=== PATIENT | male | born 1960 | race Hispanic/Latino ===

== ENCOUNTER 2016-12-03 03:44 | Emergency (ER) | payer OTHER ==
[2016-12-03] MEDS ORDERED: Ketorolac Tromethamine 30 MG/ML VIAL ONE (04:06)
[2016-12-03] MEDS ORDERED: Sodium Chloride 0.9% 1,000 ML ONE (04:06)
[2016-12-03] MEDS ORDERED: Ondansetron HCl/PF 4 MG/2 ML Vial ONE (04:06)
[2016-12-03 04:30] LABS: #Basophils 0.1 thou/uL (0.0-0.2); #Eosinphils 0.1 thou/uL (0.0-0.7); #Lymphocytes 1.9 thou/uL (1.20-3.40); #Monocytes 0.4 thou/uL (0.11-0.59); #Neutrophils 3.3 thou/uL (1.40-6.50); %Basophils 1.5 % (0.0-1.0); %Eosinophils 2.2 % (0.0-10.0); %Lymphocytes 32.4 % (21.0-51.0); %Monocytes 6.5 % (0.0-10.0); Hematocrit 44.8 % (42.0-52.0); Mean Platelet Volume 6.2 fL (7.4-10.4); Red Blood Cell (RBC) Count 5.21 mill/uL (4.70-6.10); White Blood Cell (WBC) Count 5.7 thou/uL (4.8-10.8)
[2016-12-03 04:43] LABS: ALT (SGPT) 29 U/L (0-55); AST (SGOT) 20 U/L (5-34); Alkaline Phosphatase 104 U/L (40-150); Anion Gap 14 mmol/L (10-20); BUN (Urea Nitrogen) 15 mg/dL (8.4-25.7); Bilirubin, Total 0.9 mg/dL (0.2-1.2); Calc. Creatinine Clearance 0 mL/min (70-130); Carbon Dioxide 22 mmol/L (22-29); Chloride 106 mmol/L (98-107); Estimated GFR-MDRD 86; Globulin 2.7 g/dL (2.4-3.5); Protein, Total 6.8 g/dL (6.0-8.3)
[2016-12-03 05:12] LABS: Bilirubin Negative (Negative); Blood, Urine Negative (Negative); Glucose, Urine (Dipstick) 500 mg/dL (Negative); Ketone, Urine Negative (Negative); Nitrite Negative (Negative); Protein, Urine (Dipstick) Trace mg/dL (Neg-Trace); Urobilinogen 0.2 mg/dL (0.2-1.0)
--- NOTE | 2016-12-03 08:04 | CT ---
CT ABDOMEN AND PELVIS WITH IV AND ORAL CONTRAST: History: Left abdomen pain, dysuria. Comparison: 06-02-15 FINDINGS: Mild atelectasis is present at each lung base. Reflux of oral contrast is apparent into the distal esophagus. Cysts arise from the cortex of each kidney. There is no evidence of bowel obstruction. Each renal collecting system and ureter are decompressed. A lobulated calcification within the infe rior pole of the left kidney measures up to 0.9 cm greatest diameter. Additional calcifications are present within nondilated calices of each kidney, measuring up to 0.8 cm a the inferior pole of the right kidney. No stones are evident within the ureters. Phleboliths are noted within the retroper itoneum. Urinary bladder is incompletely distended. Degenerative change involve the lumbar spine. There are nonspecific lymph nodes scattered througho ut the retroperitoneum. IMPRESSION: 1. Nonobstructing bilateral renal calculi measuring up to 9 mm on the left and 8 mm on the right. 2. Gastroesophageal reflux. POS: LOCO
[2016-12-03] MEDS ORDERED: HYDROcodone/Acetaminophen 10/325 mg Tablet ONE (08:29)
[2016-12-03] MEDS ORDERED: Iopamidol 370 76% 100 ML VIAL ONE (09:00)
--- NOTE | 2016-12-03 09:10 | ERRECORD ---
[facility] EMERGENCY RECORD HPI FLANK PAIN (05:20 JLOY) CHIEF COMPLAINT: Patient presents for evaluation of flank pain, on the left, Patient presents for evaluation of Pt with left low back pain x 2 days gradually worsening. Also with LLQ pain. Difficulty with urination. HISTORIAN: History provided by patient. LOCATION MALE: Symptoms are localized, most severe in the left lower quadrant. QUALITY: Pain is dull in nature. TIME COURSE: Gradual onset of symptoms, Symptoms are worsening, are constant. ASSOCIATED WITH MALE: No associated chills, No associated diarrhea, No associated fever, No associated hematuria, Associated with nausea, No associated inability to tolerate oral intake, No associated vomiting. EXACERBATED BY: Patient's condition exacerbated by deep breath, Patient's condition exacerbated by movement. RELIEVED BY: Patient's condition relieved by nothing. ROS CONSTITUTIONAL: Historian denies chills, denies fever. (05:30 JLOY) ENT: Historian denies rhinorrhea, denies sore throat. (05:30 JLOY) CARDIOVASCULAR: Historian denies chest pain. (05:30 JLOY) RESPIRATORY: Historian denies cough, denies shortness of breath. (05:30 JLOY) GI: Historian reports abdominal pain, denies constipation, denies diarrhea, denies hematemesis, denies hematochezia, denies melena, reports nausea, denies vomiting. (05:30 JLOY) GENITOURINARY MALE: Historian denies dysuria, denies hematuria, reports hesitancy. (05:30 JLOY) MUSCULOSKELETAL: Historian reports back pain. (05:30 JLOY) SKIN: Historian denies rash, denies skin changes. (05:30 JLOY) NEUROLOGIC: Historian denies dizziness, denies headache. (05:30 JLOY) PSYCHIATRIC: Negative psychiatric review of systems, Historian denies alcohol abuse, denies drug abuse, denies mood changes. (FriDec 04, 2016 00:35 AGRE) PAST MEDICAL HISTORY MEDICAL HISTORY: Flu vaccine not up to date, Tetanus immunization up to date, Pneumococcal vaccine not up to date, Past medical history includes history of hyperlipidemia, high cholesterol, Past medical history includes history of diabetes, Type II, Past medical history includes gastrointestinal disease, hernia, Past medical history includes genitourinary history, benign prostatic hypertrophy, Past medical history includes history of hypertension, which has been &a-1R&a+25V*p+0X*f4823G*c202B*c15G*c2P*p-0X&a-25V&a+1R Name: Agustín Grande : 1960 M56 MedRec: [id number] AcctNum: [id number] Prepared: FriDec 04, 2016 00:49 by Interface Page 1 of 5 pMD [facility] EMERGENCY RECORD treated, Past medical history includes pulmonary disease, sleep apnea. (04:05 [facility]) MALE SURGICAL HISTORY: HEART STENT (1.5 YEARS AGO), uvula removed, sinus sx deviated septum correction, Surgical history of hernia repair, Surgical history of tonsillectomy. (REVIEWED 12/03/16). (04:05 [facility]) PSYCHIATRIC HISTORY: No previous psychiatric history. (04:05 [facility]) SOCIAL HISTORY: Lives at home, with family, Patient drinks socially, Patient denies drug use, Patient currently uses tobacco, Smokes cigars, Occasional or some day smoker, rarely. (04:05 [facility]) NOTES: Nursing records reviewed, Agree with nursing records. (05:32 [facility]) KNOWN ALLERGIES ciprofloxacin (bulk) clindamycin (Unconfirmed) CURRENT MEDICATIONS atorvastatin: TABLET : Strength - 20 mg : ORAL Patient Dose: UNK Oral once a day. (03:54 [facility]) meTOPROLOL succinate: TABLET, EXTENDED RELEASE 24 HR : Strength - 25 mg : ORAL Patient Dose: UNK Oral 2 times a day. (03:55 [facility]) metFORMIN: TABLET : Strength - 1,000 mg : ORAL Patient Dose: 1000 mg Oral 2 times a day. (03:55 [facility]) lisinopril: TABLET : Strength - 2.5 mg : ORAL Patient Dose: UNK Oral once a day. (03:55 [facility]) aspirin: TABLET : Strength - 81 mg : ORAL Patient Dose: 81 mg Oral once a day. (03:56 [facility]) terazosin: CAPSULE : Strength - 1 mg : ORAL Patient Dose: UNK Oral once a day (at bedtime). (03:57 [facility]) VITAL SIGNS VITAL SIGNS: BP: 150/89, Pulse: 76, Resp: 18, Temp: 98.3 (Oral), Pain: 10 (Sharp), O2 sat: 97 on Room Air, Time: 12/03/2016 03:57. (03:57 [facility]) BP: 134/86, Pulse: 75, Resp: 18, Pain: 10, O2 sat: 94 on Room Air, Time: 12/03/2016 04:28. (04:28 [facility]) BP: 140/81, Pulse: 72, Resp: 18, Pain: 5, O2 sat: 98 on Room Air, Time: 12/03/2016 06:30. (06:30 [facility]) BP: 122/69, Pulse: 74, Resp: 18, Pain: 5, O2 sat: 96 on Room Air, Time: &a-1R&a+25V*p+0X*h7350C*c202B*c15G*c2P*p-0X&a-25V&a+1R Name: Agustín Grande : 1960 M56 MedRec: [id number] AcctNum: [id number] Prepared: FriDec 04, 2016 00:49 by Interface Page 2 of 5 D [facility] EMERGENCY RECORD 12/03/2016 05:30. (05:30 [facility]) BP: 137/82, Pulse: 75, Resp: 16, O2 sat: 97 on Room Air, Time: 12/03/2016 07:00. (07:00 [facility]) BP: 131/82, Pulse: 75, Resp: 16, O2 sat: 98 on RA, Time: 12/03/2016 08:16. (08:16 [facility]) BP: 138/84, Pulse: 70, Resp: 16, O2 sat: 98 on Room Air, Time: 12/03/2016 08:30. (08:30 [facility]) Pain: 3, Time: 12/03/2016 08:32. (08:32 [facility]) PHYSICAL EXAM (05:31 [facility]) CONSTITUTIONAL: Vital signs reviewed, Patient appears non toxic, Patient appears in pain, in severe pain distress, Patient alert and oriented to person, place and time. EYES: Eye exam included findings of eyelids normal to inspection, Pupils equally round and reactive to light, Conjunctiva normal. ENT: Pharynx exam normal, Uvula exam normal, Tonsil exam normal, Mouth exam normal, mucous membranes moist. RESPIRATORY CHEST: Respiratory exam included findings of no respiratory distress, Breath sounds clear, No wheezing, No rales, No rhonchi, Chest exam included findings of chest movement symmetrical. CARDIOVASCULAR: Cardiovascular exam included findings of heart rate regular rate and rhythm, Heart sounds normal. ABDOMEN MALE: Abdominal exam included findings of abdomen tender, to the left upper quadrant, to the left lower quadrant, periumbilical, to the suprapubic region, moderate intensity, Bowel sounds normal, Liver normal, Spleen normal, no peritoneal signs, no rigidity, no guarding, no rebound. BACK: Back exam included findings of normal inspection, range of motion normal, Tenderness, paraspinal to the left mid back, paraspinal to the left lower back, Costovertebral angle tenderness, on the left. UPPER EXTREMITY: Upper extremity exam included findings of inspection normal, Radial pulse normal, no cyanosis, no clubbing, no edema. LOWER EXTREMITY: Lower extremity exam included findings of inspection normal, no edema, no calf tenderness. NEURO: Lennon coma scale 15, Neuro exam findings include patient oriented to person, place and time, Speech normal. SKIN: Skin exam included findings of skin warm, dry, and normal in color, no rash. PSYCHIATRIC: Normal affect. RADIOLOGYINTERPRETATION (FriDec 04, 2016 00:38 AGRE) WATER QUALITY ASSISTANT: Preliminary review of CT scans by, Radiologist, IMPRESSION: 1. Nonobstructing bilateral renal calculi measuring up to 9 mm on the left and 8 mm on the right. 2. Gastroesophageal reflux. &a-1R&a+25V*p+0X*b5473M*c202B*c15G*c2P*p-0X&a-25V&a+1R Name: Agustín Grande : 1960 M56 MedRec: [id number] AcctNum: [id number] Prepared: FriDec 04, 2016 00:49 by Interface Page 3 of 5 pMD [facility] EMERGENCY RECORD MEDICATION ADMINISTRATION SUMMARY Drug Name: HYDROcodone-acetaminophen, Dose Ordered: 10/325 tab(s), Route: Oral, Status: Given, Time: 08:32 12/03/2016, Drug Name: morphine injection, Dose Ordered: 4 mg, Route: IV Push, Status: Given, Time: 04:48 12/03/2016, Drug Name: ondansetron HCl intravenous, Dose Ordered: 4 mg, Route: IV Push, Status: Given, Time: 04:24 12/03/2016, Drug Name: ketorolac injection, Dose Ordered: 30 mg, Route: IV Push, Status: Given, Time: 04:22 12/03/2016, Drug Name: *sodium chloride 0.9 % intravenous, Dose Ordered: 1 L, Route: IV Fluid Infusion, Status: Given, Time: 04:20 12/03/2016, *Additional information available in notes, Detailed record available in Medication Service section. DOCTOR NOTES (FriDec 04, 2016 00:38 AGRE) RE-EVALUATION: Routine re-evaluation, after administration of analgesics, The patient's condition has improved. TEXT: PATIENT SIGNED OUT TO ME FROM DR CASE. PATIENT GIVES HX OF INJURYING HIS BACK WITH PAIN FOR 3 - 4 DAYS AND WORST THIS MORNING. HAVING TROUBLE GETTING OUT OF BED OR SITTING SELF UP THIS MORNING. ON EXAM THERE IS MARKED TENDERNESS OVER THE LEFT LOWER BACK MUSCULATURE. NO TENDERNESS OVER THE SPINE. NO SWELLING OR ERYTHEMA. MILD TENDERNESS LEFT FLANK, NO GUARDING OR REBOUND. DISCUSSED WITH PATIENT FINDINGS ON EXAM, RESULTS OF HIS ED WORK UP, SUSPECT ALL HIS SYMTPOMS ARE FROM HIS BACK INJURY HOWEVER CANNOT RULE OUT HIM HAVING PASSED A KIDNEY STONE CAUSING THE ACUTE EPISODE OF PAIN THIS MORINING. ADVISED HIM ON MANAGMENT OF HIS SYMPTOMS, LIMITATION OF ACTIVITY, PAIN CONTROL, NEED FOR FOLLOW UP. HE EXPRESSED UNDERSTANDING AND AGREEMENT WITH THIS PLAN. PATIENT STATUS: Patient has improved since arrival to emergency department. PATIENT PLAN: The patient will be discharged. DATA REVIEWED: Lab data reviewed, Xray data reviewed. PROBLEM LIST No recorded problems DIAGNOSIS (08:15 AGRE) FINAL: PRIMARY: Low back pain, ADDITIONAL: Abdominal Pain. PRESCRIPTION (08:21 AGRE) Robaxin oral: TABLET : 500 mg : ORAL : Quantity: 2 Unit: tab(s) Route: ORAL Schedule: every 6 hours PRN Dispense: 40 May substitute. Refills: No Refills . NOTES: PRN MUSCLE SPASMS No Refills. acetaminophen-codeine: TABLET : 300 mg-60 mg : ORAL : Quantity: 1 Unit: tab(s) Route: ORAL Schedule: every 6 hours PRN &a-1R&a+25V*p+0X*d0751R*c202B*c15G*c2P*p-0X&a-25V&a+1R Name: Agustín Grande : 1960 M56 MedRec: [id number] AcctNum: [id number] Prepared: FriDec 04, 2016 00:49 by Interface Page 4 of 5 pMD [facility] EMERGENCY RECORD Dispense: 20 Unit: tab(s) May substitute. Refills: No Refills . NOTES: prn severe pain No Refills. DISPOSITION PATIENT: Disposition Type: Discharge, Disposition: *Discharge Home, Condition: Improved. (08:15 AGRE) Patient left the department. (08:55 [facility]) Holder: BARRINGTON=MD Brayden, Kieran PAGE=MD Lencho, Bhavesh HERNANDEZ=YO Simental, Niharika [facility]=YO Gomez, Sarah &a-1R&a+25V*p+0X*f4510G*c202B*c15G*c2P*p-0X&a-25V&a+1R Name: Agustín Grande : 1960 M56 MedRec: [id number] AcctNum: [id number] Prepared: FriDec 04, 2016 00:49 by Interface Page 5 of 5 pMD [facility]TDD
--- NOTE | 2016-12-03 09:13 | PICIS ---
[facility] EMERGENCY RECORD TRIAGE (03:52 [facility]) TRIAGE NOTES: SHARP LEFT FLANK PAIN SINCE FRIDAY MORNING. GRADUALLY GOTTEN WORSE. DYSURIA. HX: KIDNEY STONES. (03:52 [facility]) PATIENT: NAME: Agustín Grande, AGE: 56, GENDER: male, : Fri1960, TIME OF GREET: FriDec 03, 2016 03:44, PREFERRED LANGUAGE: Occitan, ETHNICITY: or , ECODE BILLING MAP: [facility], SSN: [id number], Zip Code: [address], KG WEIGHT: 81.65 (est.), PHONE: , , , PERSON ID: [id number], PCP: DIANNE TORRES. (03:52 [facility]) COMPLAINT: LOWER BACK PAIN. (03:52 [facility]) ADMISSION: URGENCY: 3 Urgent, ADMISSION SOURCE: Home, TRANSPORT: CAR, BED: ER -03. (03:52 [facility]) ASSESSMENT: Symptoms began 12/01/2016. (04:05 [facility]) PAIN: Patient complains of pain described as, sharp, on a scale 0-10 patient rates pain as 10, Location LEFT FLANK, Onset was 12/01/2016. (04:05 [facility]) IMMUNIZATIONS: Flu vaccine not up to date, Tetanus immunization up to date, Pneumococcal vaccine not up to date. (04:05 [facility]) SIRS SCORING: Heart Rate 55-109 (0), Temp range 96.8-101.1 (0), respiratory rate 12-24 (0), Mental Status altered: no (0). (04:05 [facility]) TRIAGE SCREENING: Patient denies suicidal ideation, Patient denies presence of domestic violence. (04:05 [facility]) TREATMENTS IN PROGRESS: Treatments given Prehospital: 2 IBUPROFEN @ 0200. (04:05 [facility]) PROVIDERS: TRIAGE NURSE: Niharika Simental RN. (03:52 [facility]) PREVIOUS VISIT ALLERGIES: ciprofloxacin (bulk). (03:52 [facility]) ciprofloxacin (bulk). (04:05 [facility]) KNOWN ALLERGIES ciprofloxacin (bulk) clindamycin (Unconfirmed) CURRENT MEDICATIONS atorvastatin: TABLET : Strength - 20 mg : ORAL Patient Dose: UNK Oral once a day. (03:54 [facility]) meTOPROLOL succinate: TABLET, EXTENDED RELEASE 24 HR : Strength - 25 mg : ORAL Patient Dose: UNK Oral 2 times a day. (03:55 [facility]) metFORMIN: TABLET : Strength - 1,000 mg : ORAL Patient Dose: 1000 mg Oral 2 times a day. (03:55 [facility]) lisinopril: TABLET : Strength - 2.5 mg : ORAL Patient Dose: UNK Oral once a day. (03:55 [facility]) aspirin: &a-1R&a+25V*p+0X*n2037Z*c202B*c15G*c2P*p-0X&a-25V&a+1R Name: Agustín Grande : 1960 M56 MedRec: [id number] AcctNum: [id number] Prepared: FriDec 04, 2016 00:55 by Interface Page 1 of 12 pMD [facility] EMERGENCY RECORD TABLET : Strength - 81 mg : ORAL Patient Dose: 81 mg Oral once a day. (03:56 [facility]) terazosin: CAPSULE : Strength - 1 mg : ORAL Patient Dose: UNK Oral once a day (at bedtime). (03:57 [facility]) VITAL SIGNS VITAL SIGNS: BP: 150/89, Pulse: 76, Resp: 18, Temp: 98.3 (Oral), Pain: 10 (Sharp), O2 sat: 97 on Room Air, Time: 12/03/2016 03:57. (03:57 [facility]) BP: 134/86, Pulse: 75, Resp: 18, Pain: 10, O2 sat: 94 on Room Air, Time: 12/03/2016 04:28. (04:28 [facility]) BP: 140/81, Pulse: 72, Resp: 18, Pain: 5, O2 sat: 98 on Room Air, Time: 12/03/2016 06:30. (06:30 [facility]) BP: 122/69, Pulse: 74, Resp: 18, Pain: 5, O2 sat: 96 on Room Air, Time: 12/03/2016 05:30. (05:30 [facility]) BP: 137/82, Pulse: 75, Resp: 16, O2 sat: 97 on Room Air, Time: 12/03/2016 07:00. (07:00 [facility]) BP: 131/82, Pulse: 75, Resp: 16, O2 sat: 98 on RA, Time: 12/03/2016 08:16. (08:16 [facility]) BP: 138/84, Pulse: 70, Resp: 16, O2 sat: 98 on Room Air, Time: 12/03/2016 08:30. (08:30 [facility]) Pain: 3, Time: 12/03/2016 08:32. (08:32 [facility]) NURSING ASSESSMENT: ABDOMEN (04:10 [facility]) CONSTITUTIONAL: Complex assessment performed, Patient arrives, via hospital wheelchair, Gait steady, History obtained from patient, Patient appears, in distress due to pain, Patient cooperative, Patient alert, Oriented to person, place and time, Skin warm, Skin dry, Skin normal in color, Mucous membranes pink, Mucous membranes moist, Patient is well-groomed, Patient complains of LEFT FLANK PAIN. PAIN: sharp pain, to the left flank, Pain radiates, to the left groin, Onset of pain 12/01/2016, on a scale 0-10 patient rates pain as 10, PAIN IS CONSTANT. SEVERITY CHANGES. INTERMITTENT SHARP, UNBEARABLE PAINS., Pain exacerbated by nothing. ABDOMEN: Abdomen assessment findings include abdomen symmetrical, no discolorations, Abdomen soft, tender, to the left lower quadrant, to the left flank, Bowel sound normal, Associated with nausea, no associated vomiting, no associated diarrhea, no associated constipation. GENITOURINARY MALE: Associated with urinary complaints described as, PT FEELS IF HE IS VOIDING LESS THAN NORMAL. REPORTS SLIGHT DIFFICULTY URINATING. STATES WHEN HE DOES VOID IT GIVES TEMPORARY RELIEF. NO C/O PAIN, BURNING, OR FOUL ODOR. NO VISIBLE BLOOD NOTED IN URINE. SAFETY: Side rails up, Cart/Stretcher in lowest position, Call light within reach, Hospital ID band on. &a-1R&a+25V*p+0X*x2481X*c202B*c15G*c2P*p-0X&a-25V&a+1R Name: Agustín Grande : 1960 M56 MedRec: [id number] AcctNum: [id number] Prepared: FriDec 04, 2016 00:55 by Interface Page 2 of 12 pMD [facility] EMERGENCY RECORD NURSING PROCEDURE: DISCHARGE NOTE (08:45 [facility]) DISCHARGE: Patient discharged to home, ambulating without assistance, friend driving, accompanied by friend, Summary of Care printed/ provided, Discharge instructions given to patient, Simple or moderate discharge teaching performed, Prescriptions given and instructions on side effects given, Above person(s) verbalized understanding of discharge instructions and follow-up care, Patient treated and evaluated by physician. BELONGINGS: Belongings remain with patient. NURSING PROCEDURE: IV PATIENT IDENITIFIER: Patient actively involved in identification process, Patient's identity verified by patient stating name, Patient's identity verified by patient stating date. (04:08 [facility]) IV SITE 1: IV therapy indicated for hydration, IV therapy indicated for medication administration, IV established, to the right antecubital, using an 18 gauge catheter, in one attempt, Unable to obtain IV access, IV site prepped with chloraprep. (04:08 [facility] IV therapy indicated for hydration, IV therapy indicated for medication administration, IV established, to the left hand, using a 20 gauge catheter, in two attempts, IV site prepped with chloroprep, Saline lock established, Flushed with normal saline (mls): 10, Labs drawn at time of placement, labeled in the presence of the patient and sent to lab. (04:20 [facility]) FOLLOW-UP SITE 1: Notes: Tip intact. Pressure applied along with 2x2 and tape. Patient tolerated procedure well. (04:08 [facility]) SAFETY: Side rails up, Cart/Stretcher in lowest position, Call light within reach, Hospital ID band on. (04:08 [facility]) NURSING PROCEDURE: NURSE NOTES NURSES NOTES: Notes: PT REQUESTING MORE PAIN MEDICATIONS. STATES TORADOL HAS GIVEN HIM VERY LITTLE RELIEF. MD MADE AWARE. ORDER FOR 4MG MORPHINE RECEIVED. PT MADE AWARE HE WILL NOT BE ABLE TO DRIVE HIMSELF HOME AFTER RECEIVING NARCOTIC MEDICATION. PT VERBALIZES UNDERSTANDING AND STATES HE CAN GET SOMEONE TO PICK HIM UP. (04:45 [facility]) Patient re-evaluated by physician. (05:10 [facility]) Notes: PT RELAXING IN BED IN NAD. DRINKING ORAL CONTRAST FOR CT SCAN. STATES PAIN IS TOLERABLE " LONG I'M NOT MOVING AROUND TOO MUCH." RR EVEN AND UNLABORED. VSS. NO COMPLAINTS AT THIS TIME. (06:30 [facility]) Shift change report given, to YO GEIGER, Provided opportunity to answer questions. (06:56 [facility]) Assistance offered to patient, Notes: Report rec'd from Niharika; assumed care of pt; Awake, alert. Resp non-labored. Tolerating PO contrast. CT &a-1R&a+25V*p+0X*z7829C*c202B*c15G*c2P*p-0X&a-25V&a+1R Name: Agustín Grande : 1960 M56 MedRec: [id number] AcctNum: [id number] Prepared: FriDec 04, 2016 00:55 by Interface Page 3 of 12 pMD [facility] EMERGENCY RECORD pending. (06:57 [facility]) Notes: Pt resting quietly; sts pain "ok" as long as he is still. Pain to mid back to left flank area. Dr Owen in to discuss findings. (08:16 [facility]) Notes: Pain med given as ordered; awaiting ride. (08:33 [facility]) Notes: Pt's ride (adult tanker driver) here; IV dc'd with cath intact. 2x2 dressing applied to site. (08:40 [facility]) VITAL SIGNS: BP: 131, / 82, Pulse: 75, Resp: 16, O2 sat: 98, on: RA. (08:16 [facility]) NURSING PROCEDURE: TRANSPORT TO TESTS TRANSPORT TO TESTS: Patient transported to CT scan, via cart, Accompanied by x-ray downstream biomanufacturing technician. (07:21 [facility]) Patient transported to CT scan, via cart, Accompanied by x-ray downstream biomanufacturing technician, Patient arrived in location at 0720A, Patient departed location at 0735A. (07:36 [facility]) FOLLOW-UP: After procedure, patient returned to emergency department. (07:37 [facility]) NURSING PROCEDURE: URINE COLLECTION (05:10 [facility]) PATIENT IDENTIFIER: Patient actively involved in identification process, Patient's identity verified by patient stating name, Patient's identity verified by patient stating date. URINE COLLECTION MALE: Urine collected by void, output amount (mL) 100, urine yellow in color, and clear, Specimen labeled in the presence of the patient and sent to lab, Specimen obtained for culture labeled in the presence of the patient and sent to lab. SAFETY: Side rails up, Cart/Stretcher in lowest position, Call light within reach, Hospital ID band on. ORDER DETAILS Order Name: CBC with Differential, Status: Active, Time: 03:56 12/03/2016, User: CAMILO, - Ordered for: MD Musa Joshua, - Entered by: MD Musa Joshua - Tue Dec 03, 2016 03:56, - Quantity: 1, Order Name: Comprehensive Metabolic Panel, Status: Active, Time: 03:56 12/03/2016, User: CAMILO, - Ordered for: MD Musa Joshua, - Entered by: MD Musa Joshua - Tue Dec 03, 2016 03:56, - Quantity: 1, Order Name: CT Abdomen Pelvis W Con, Status: Active, Time: 05:19 12/03/2016, User: CAMILO, - Ordered for: MD Musa Joshua, - Entered by: MD Musa Joshua - Tue Dec 03, 2016 05:19, - Quantity: 1, Order Name: SALINE LOCK, Status: Done, Time: 04:26 12/03/2016, User: ROSETTA, - Ordered for: MD Musa Joshua, &a-1R&a+25V*p+0X*p1565D*c202B*c15G*c2P*p-0X&a-25V&a+1R Name: Agustín Grande : 1960 M56 MedRec: [id number] AcctNum: [id number] Prepared: FriDec 04, 2016 00:55 by Interface Page 4 of 12 pMD [facility] EMERGENCY RECORD - Entered by: MD Musa Joshua - Tue Dec 03, 2016 03:56, - Quantity: 1, Order Name: Urinalysis w/ Rflx Microscopic, Status: Active, Time: 03:56 12/03/2016, User: CAMILO, - Ordered for: MD Musa Joshua, - Entered by: MD Musa Joshua - Tue Dec 03, 2016 03:56, - Quantity: 1. MEDICATION ADMINISTRATION SUMMARY Drug Name: HYDROcodone-acetaminophen, Dose Ordered: 10/325 tab(s), Route: Oral, Status: Given, Time: 08:32 12/03/2016, Drug Name: morphine injection, Dose Ordered: 4 mg, Route: IV Push, Status: Given, Time: 04:48 12/03/2016, Drug Name: ondansetron HCl intravenous, Dose Ordered: 4 mg, Route: IV Push, Status: Given, Time: 04:24 12/03/2016, Drug Name: ketorolac injection, Dose Ordered: 30 mg, Route: IV Push, Status: Given, Time: 04:22 12/03/2016, Drug Name: *sodium chloride 0.9 % intravenous, Dose Ordered: 1 L, Route: IV Fluid Infusion, Status: Given, Time: 04:20 12/03/2016, *Additional information available in notes, Detailed record available in Medication Service section. MEDICATION SERVICE HYDROcodone-acetaminophen: Order: HYDROcodone-acetaminophen (hydrocodone bitartrate/acetaminophen) - Dose: 10/325 tab(s) : Oral Ordered by: Kieran Owen MD Entered by: Kieran Owen MD FriDec 03, 2016 08:27 , Acknowledged by: Sarah Gomez RN FriDec 03, 2016 08:28 Documented as given by: Sarah Gomez RN Dec 03, 2016 08:32 Patient, Medication, Dose, Route and Time verified prior to administration. Amount given: 10/325mg, Site: Medication administered P.O., Patient appears Awake and alert- acceptable, Correct patient, time, route, dose and medication confirmed prior to administration, Patient advised of actions and side-effects prior to administration, Allergies confirmed and medications reviewed prior to administration, Patient in position of comfort, Side rails up, Cart in lowest position. ketorolac injection: Order: ketorolac injection (ketorolac tromethamine) - Dose: 30 mg : IV Push POTENTIAL CONTRAINDICATED INTERACTION: aspirin oral - Benefits outweigh risks Ordered by: Bhavesh Musa MD Entered by: Bhavesh Musa MD FriDec 03, 2016 04:05 Documented as given by: Niharika Simental RN Dec 03, 2016 04:22 Patient, Medication, Dose, Route and Time verified prior to administration. Amount given: 30mg, IV SITE #1 IVP, initial medication, Slowly, &a-1R&a+25V*p+0X*q9317B*c202B*c15G*c2P*p-0X&a-25V&a+1R Name: Agustín Grande : 1960 M56 MedRec: [id number] AcctNum: [id number] Prepared: FriDec 04, 2016 00:55 by Interface Page 5 of 12 pMD [facility] EMERGENCY RECORD Awake and alert- acceptable, Catheter placement confirmed via flush prior to administration, IV site without signs or symptoms of infiltration during medication administration, No swelling during administration, No drainage during administration, IV flushed after administration, Correct patient, time, route, dose and medication confirmed prior to administration, Patient advised of actions and side-effects prior to administration, Allergies confirmed and medications reviewed prior to administration. : Follow Up : No signs or symptoms of allergic reaction noted, Decreased pain, _IV SITE #1:_. (04:45 [facility]) morphine injection: Order: morphine injection (morphine sulfate) - Dose: 4 mg : IV Push Ordered by: Bhavesh Musa MD Entered by: Bhavesh Musa MD [facility] Dec 03, 2016 04:46 Documented as given by: Niharika Simental RN [facility] Dec 03, 2016 04:48 Patient, Medication, Dose, Route and Time verified prior to administration. Amount given: 4mg, IV SITE #1 IVP, subsequent different medication, Slowly, Awake and alert- acceptable, Catheter placement confirmed via flush prior to administration, IV site without signs or symptoms of infiltration during medication administration, No swelling during administration, No drainage during administration, IV flushed after administration, Correct patient, time, route, dose and medication confirmed prior to administration, Patient advised of actions and side-effects prior to administration, Allergies confirmed and medications reviewed prior to administration. : Follow Up : No signs or symptoms of allergic reaction noted, Decreased pain, _IV SITE #1:_. (05:30 [facility]) ondansetron HCl intravenous: Order: ondansetron HCl intravenous (ondansetron HCl) - Dose: 4 mg : IV Push Ordered by: Bhavesh Musa MD Entered by: Bhavesh Musa MD [facility] Dec 03, 2016 04:06 Documented as given by: Niharika Simental RN [facility] Dec 03, 2016 04:24 Patient, Medication, Dose, Route and Time verified prior to administration. Amount given: 4mg, IV SITE #1 IVP, subsequent different medication, Slowly, Awake and alert- acceptable, Catheter placement confirmed via flush prior to administration, IV site without signs or symptoms of infiltration during medication administration, No swelling during administration, No drainage during administration, IV flushed after administration, Correct patient, time, route, dose and medication confirmed prior to administration, Patient advised of actions and side-effects prior to administration, Allergies confirmed and medications reviewed prior to administration. : Follow Up : No signs or symptoms of allergic reaction noted, Decreased nausea, _IV SITE #1:_. (04:45 [facility]) sodium chloride 0.9 % intravenous: Order: sodium chloride 0.9 % intravenous (0.9 % sodium chloride) - Dose: 1 L : IV Fluid Infusion Notes: (Bolus) &a-1R&a+25V*p+0X*c7268Q*c202B*c15G*c2P*p-0X&a-25V&a+1R Name: Agustín Grande : 1960 M56 MedRec: [id number] AcctNum: [id number] Prepared: FriDec 04, 2016 00:55 by Interface Page 6 of 12 D [facility] EMERGENCY RECORD Ordered by: Bhavesh Musa MD Entered by: Bhavesh Musa MD [facility] Dec 03, 2016 04:06 Documented as given by: Niharika Simental RN [facility] Dec 03, 2016 04:20 Patient, Medication, Dose, Route and Time verified prior to administration. IV SITE #1 IV fluids established for hydration, IV SITE #1 into left hand, IV SITE #1 1st bag hung, amount 1 Liter hung, IV SITE #1 bolus of 1000 ml established, IV SITE #1 Rate of bolus, wide open, 1000 ml/hr, via primary tubing, via pump tubing, Awake and alert- acceptable, Catheter placement confirmed via flush prior to administration, IV site without signs or symptoms of infiltration during medication administration, No swelling during administration, No drainage during administration, IV flushed after administration, Correct patient, time, route, dose and medication confirmed prior to administration, Patient advised of actions and side-effects prior to administration, Allergies confirmed and medications reviewed prior to administration. : Follow Up : _IV SITE #1:_, IV fluid infusion discontinued, on FriDec 03, 2016 05:20, Total fluid hydration time IV site 1 1 hour, ., Total amount infused: 1L. (05:20 [facility]) HPI FLANK PAIN (05:20 [facility]) CHIEF COMPLAINT: Patient presents for evaluation of flank pain, on the left, Patient presents for evaluation of Pt with left low back pain x 2 days gradually worsening. Also with LLQ pain. Difficulty with urination. HISTORIAN: History provided by patient. LOCATION MALE: Symptoms are localized, most severe in the left lower quadrant. QUALITY: Pain is dull in nature. TIME COURSE: Gradual onset of symptoms, Symptoms are worsening, are constant. ASSOCIATED WITH MALE: No associated chills, No associated diarrhea, No associated fever, No associated hematuria, Associated with nausea, No associated inability to tolerate oral intake, No associated vomiting. EXACERBATED BY: Patient's condition exacerbated by deep breath, Patient's condition exacerbated by movement. RELIEVED BY: Patient's condition relieved by nothing. ROS CONSTITUTIONAL: Historian denies chills, denies fever. (05:30 [facility]) ENT: Historian denies rhinorrhea, denies sore throat. (05:30 [facility]) CARDIOVASCULAR: Historian denies chest pain. (05:30 [facility]) RESPIRATORY: Historian denies cough, denies shortness of breath. (05:30 [facility]) GI: Historian reports abdominal pain, denies constipation, denies diarrhea, denies hematemesis, denies hematochezia, denies melena, reports nausea, denies &a-1R&a+25V*p+0X*x4871F*c202B*c15G*c2P*p-0X&a-25V&a+1R Name: Agustín Grande : 1960 M56 MedRec: [id number] AcctNum: [id number] Prepared: FriDec 04, 2016 00:55 by Interface Page 7 of 12 pMD [facility] EMERGENCY RECORD vomiting. (05:30 [facility]) GENITOURINARY MALE: Historian denies dysuria, denies hematuria, reports hesitancy. (05:30 [facility]) MUSCULOSKELETAL: Historian reports back pain. (05:30 [facility]) SKIN: Historian denies rash, denies skin changes. (05:30 [facility]) NEUROLOGIC: Historian denies dizziness, denies headache. (05:30 [facility]) PSYCHIATRIC: Negative psychiatric review of systems, Historian denies alcohol abuse, denies drug abuse, denies mood changes. (FriDec 04, 2016 00:35 [facility]) PAST MEDICAL HISTORY MEDICAL HISTORY: Flu vaccine not up to date, Tetanus immunization up to date, Pneumococcal vaccine not up to date, Past medical history includes history of hyperlipidemia, high cholesterol, Past medical history includes history of diabetes, Type II, Past medical history includes gastrointestinal disease, hernia, Past medical history includes genitourinary history, benign prostatic hypertrophy, Past medical history includes history of hypertension, which has been treated, Past medical history includes pulmonary disease, sleep apnea. (04:05 [facility]) MALE SURGICAL HISTORY: HEART STENT (1.5 YEARS AGO), uvula removed, sinus sx deviated septum correction, Surgical history of hernia repair, Surgical history of tonsillectomy. (REVIEWED 12/03/16). (04:05 [facility]) PSYCHIATRIC HISTORY: No previous psychiatric history. (04:05 [facility]) SOCIAL HISTORY: Lives at home, with family, Patient drinks socially, Patient denies drug use, Patient currently uses tobacco, Smokes cigars, Occasional or some day smoker, rarely. (04:05 [facility]) NOTES: Nursing records reviewed, Agree with nursing records. (05:32 [facility]) PHYSICAL EXAM (05:31 [facility]) CONSTITUTIONAL: Vital signs reviewed, Patient appears non toxic, Patient appears in pain, in severe pain distress, Patient alert and oriented to person, place and time. EYES: Eye exam included findings of eyelids normal to inspection, Pupils equally round and reactive to light, Conjunctiva normal. ENT: Pharynx exam normal, Uvula exam normal, Tonsil exam normal, Mouth exam normal, mucous membranes moist. RESPIRATORY CHEST: Respiratory exam included findings of no respiratory distress, Breath sounds clear, No wheezing, No rales, No rhonchi, Chest exam included findings of chest movement symmetrical. CARDIOVASCULAR: Cardiovascular exam included findings of heart rate regular rate and rhythm, Heart sounds normal. &a-1R&a+25V*p+0X*c5987X*c202B*c15G*c2P*p-0X&a-25V&a+1R Name: Agustín Grande : 1960 M56 MedRec: [id number] AcctNum: [id number] Prepared: FriDec 04, 2016 00:55 by Interface Page 8 of 12 pMD [facility] EMERGENCY RECORD ABDOMEN MALE: Abdominal exam included findings of abdomen tender, to the left upper quadrant, to the left lower quadrant, periumbilical, to the suprapubic region, moderate intensity, Bowel sounds normal, Liver normal, Spleen normal, no peritoneal signs, no rigidity, no guarding, no rebound. BACK: Back exam included findings of normal inspection, range of motion normal, Tenderness, paraspinal to the left mid back, paraspinal to the left lower back, Costovertebral angle tenderness, on the left. UPPER EXTREMITY: Upper extremity exam included findings of inspection normal, Radial pulse normal, no cyanosis, no clubbing, no edema. LOWER EXTREMITY: Lower extremity exam included findings of inspection normal, no edema, no calf tenderness. NEURO: Austin coma scale 15, Neuro exam findings include patient oriented to person, place and time, Speech normal. SKIN: Skin exam included findings of skin warm, dry, and normal in color, no rash. PSYCHIATRIC: Normal affect. LAB INTERPRETATION (FriDec 04, 2016 00:38 [facility]) INTERPRETATION: CBC normal, Chemistry abnormal, Glucose elevated, Liver functions normal, Urinalysis abnormal, positive for glucose. EVENTS TRANSFER: Triage to Emergency Emergency Room -03. (FriDec 03, 2016 03:52 [facility]) Removed from Emergency Emergency Room -03. (08:55 [facility]) RADIOLOGYINTERPRETATION (FriDec 04, 2016 00:38 [facility]) DRAW FURNACE TENDER: Preliminary review of CT scans by, Radiologist, IMPRESSION: 1. Nonobstructing bilateral renal calculi measuring up to 9 mm on the left and 8 mm on the right. 2. Gastroesophageal reflux. O2SAT INTERPRETATION (FriDec 04, 2016 00:36 [facility]) O2SAT: Continuous pulse oximetry, Oxygen saturation 97%, on room air, Oxygen saturation interpretation: Normal, No intervention required. DOCTOR NOTES (FriDec 04, 2016 00:38 [facility]) RE-EVALUATION: Routine re-evaluation, after administration of analgesics, The patient's condition has improved. TEXT: PATIENT SIGNED OUT TO ME FROM DR MUSA. PATIENT GIVES HX OF INJURYING HIS BACK WITH PAIN FOR 3 - 4 DAYS AND WORST THIS MORNING. HAVING TROUBLE GETTING OUT OF BED OR SITTING SELF UP THIS MORNING. ON EXAM THERE IS MARKED TENDERNESS OVER THE LEFT LOWER BACK &a-1R&a+25V*p+0X*v0107N*c202B*c15G*c2P*p-0X&a-25V&a+1R Name: Agustín Grande : 1960 M56 MedRec: [id number] AcctNum: [id number] Prepared: FriDec 04, 2016 00:55 by Interface Page 9 of 12 pMD [facility] EMERGENCY RECORD MUSCULATURE. NO TENDERNESS OVER THE SPINE. NO SWELLING OR ERYTHEMA. MILD TENDERNESS LEFT FLANK, NO GUARDING OR REBOUND. DISCUSSED WITH PATIENT FINDINGS ON EXAM, RESULTS OF HIS ED WORK UP, SUSPECT ALL HIS SYMTPOMS ARE FROM HIS BACK INJURY HOWEVER CANNOT RULE OUT HIM HAVING PASSED A KIDNEY STONE CAUSING THE ACUTE EPISODE OF PAIN THIS MORINING. ADVISED HIM ON MANAGMENT OF HIS SYMPTOMS, LIMITATION OF ACTIVITY, PAIN CONTROL, NEED FOR FOLLOW UP. HE EXPRESSED UNDERSTANDING AND AGREEMENT WITH THIS PLAN. PATIENT STATUS: Patient has improved since arrival to emergency department. PATIENT PLAN: The patient will be discharged. DATA REVIEWED: Lab data reviewed, Xray data reviewed. PROBLEM LIST No recorded problems DIAGNOSIS (08:15 AGRE) FINAL: PRIMARY: Low back pain, ADDITIONAL: Abdominal Pain. DISPOSITION PATIENT: Disposition Type: Discharge, Disposition: *Discharge Home, Condition: Improved. (08:15 AGRE) Patient left the department. (08:55 MSPE) INSTRUCTION (08:25 AGRE) DISCHARGE: LOW BACK PAIN GENERAL, ABDOMINAL PAIN, UNKOWN CAUSE, (MALE). SPECIAL: IN ADDITION TO THE PRESCRIPTION MEDICATIONS TAKE MOTRIN 600 MG EVERY 6 HOURS FOR INFLAMMATION AND PAIN. AVOID ANY BACK STRAINNG FOR 10 DAYS. ICE PACKS TO YOUR BACK FOR 20 MINUTES EVERY 4 HOURS WHILE AWAKE FOR THE NEXT 3 DAYS THEN USE WARM MOIST HEAT. SEE YOUR PRIMARY CARE PHYSICIAN FOR RECHECK TOMORROW. SEE A PHYSICIAN SOONER IF WORSENING OR IF NEW SYMPTOMS DEVELOP. PRESCRIPTION (08:21 AGRE) Robaxin oral: TABLET : 500 mg : ORAL : Quantity: 2 Unit: tab(s) Route: ORAL Schedule: every 6 hours PRN Dispense: 40 May substitute. Refills: No Refills . NOTES: PRN MUSCLE SPASMS No Refills. acetaminophen-codeine: TABLET : 300 mg-60 mg : ORAL : Quantity: 1 Unit: tab(s) Route: ORAL Schedule: every 6 hours PRN Dispense: 20 Unit: tab(s) May substitute. Refills: No Refills . NOTES: prn severe pain No Refills. IMAGING (08:48 MSPE) *DISCHARGE INSTRUCTIONS RECEIPT: Image captured from scanner. &a-1R&a+25V*p+0X*[id number]*c202B*c15G*c2P*p-0X&a-25V&a+1R Name: Agustín Grande : 1960 M56 MedRec: [id number] AcctNum: [id number] Prepared: FriDec 04, 2016 00:55 by Interface Page 10 of 12 pMD [facility] EMERGENCY RECORD *SUPPLY CHARGE SHEET: Image captured from scanner. ADMIN (FriDec 04, 2016 00:42 AGRE) DIGITAL SIGNATURE: MD Brayden, Kieran. RESULTS (05:48 [facility]) LABORATORY: Urinalysis w/ Rflx Microscopic Collection DT: FriDec 03, 2016 05:08, Color Yellow , Range (Yellow), Clarity Clear , Range (Clear), Specific [place], Urine 1.020 , Range (1.005-1.030), pH, Urine 5.5 , Range (5.0-9.0), Leukocyte Negative , Range (Negative), Nitrite Negative , Range (Negative), Protein, Urine (Dipstick) Trace mg/dL, Range (Neg-Trace), *Glucose, Urine (Dipstick) 500 - H mg/dL, Range (Negative), Ketone, Urine Negative mg/dL, Range (Negative), Urobilinogen 0.2 mg/dL, Range (0.2-1.0), Bilirubin Negative , Range (Negative), Blood, Urine Negative , Range (Negative). Comprehensive Metabolic Panel Collection DT: FriDec 03, 2016 04:20, Sodium 138 mmol/L, Range (136-145), Potassium 4.3 mmol/L, Range (3.5-5.1), Chloride 106 mmol/L, Range (98-107), Carbon Dioxide 22 mmol/L, Range (22-29), Anion Gap 14 mmol/L, Range (10-20), BUN (Urea Nitrogen) 15 mg/dL, Range (8.4-25.7), Creatinine 0.91 mg/dL, Range (0.7-1.3), Estimated GFR-MDRD 86 , Reference Range for Estimated GFR: Greater than 90, mL/min/1.73 m2 NOTE: The MDRD equation has not been validated for use, with the elderly (over 70 years of age), women, patients with, serious comorbid condition or persons with extremes of body size, muscle, mass, or nutritional status. , *Glucose 318 - H mg/dL, Range (70-105), Calcium 9.0 mg/dL, Range (7.8-10.44), Bilirubin, Total 0.9 mg/dL, Range (0.2-1.2), Protein, Total 6.8 g/dL, Range (6.0-8.3), NOTE: Plasma values are generally 0.3 to 0.5 g/dL higher than serum values, due to the presence of fibrinogen. , Albumin 4.1 g/dL, Range (3.5-5.0), Globulin 2.7 g/dL, Range (2.4-3.5), Alb/Glob Ratio 1.5 g/dL, Range (1.2-2.2), Alkaline Phosphatase 104 U/L, Range (40-150), AST (SGOT) 20 U/L, Range (5-34), ALT (SGPT) 29 U/L, Range (0-55). CBC with Differential Collection DT: FriDec 03, 2016 04:20, White Blood Cell (WBC) Count 5.7 thou/uL, Range (4.8-10.8), &a-1R&a+25V*p+0X*m5275I*c202B*c15G*c2P*p-0X&a-25V&a+1R Name: Agustín Grande : 1960 M56 MedRec: [id number] AcctNum: [id number] Prepared: FriDec 04, 2016 00:55 by Interface Page 11 of 12 pMD [facility] EMERGENCY RECORD Red Blood Cell (RBC) Count 5.21 mill/uL, Range (4.70-6.10), Hemoglobin 15.9 g/dL, Range (14.0-18.0), Hematocrit 44.8 %, Range (42.0-52.0), Mean Corpuscular Volume 85.9 fl, Range (80.0-94.0), Mean Corpuscular Hemoglobin 30.4 pg, Range (27.0-31.0), Mean Corpuscular HGB CONC 35.4 g/dL, Range (32.0-36.0), *RBC Distribution Width 11.2 - L %, Range (11.5-14.5), Platelet Count 277 thou/uL, Range (130-400), *Mean Platelet Volume 6.2 - L fL, Range (7.4-10.4), %Neutrophils 57.5 %, Range (42.0-75.0), %Lymphocytes 32.4 %, Range (21.0-51.0), %Monocytes 6.5 %, Range (0.0-10.0), %Eosinophils 2.2 %, Range (0.0-10.0), *%Basophils 1.5 - H %, Range (0.0-1.0), #Neutrophils 3.3 thou/uL, Range (1.40-6.50), #Lymphocytes 1.9 thou/uL, Range (1.20-3.40), #Monocytes 0.4 thou/uL, Range (0.11-0.59), #Eosinphils 0.1 thou/uL, Range (0.0-0.7), #Basophils 0.1 thou/uL, Range (0.0-0.2). Holder: BARR[place]=MD Brayden, Kieran LEE=SAMUEL [place] JLOY=MD Lencho, Bhavesh SARGENT=YO Live, Anushka HERNANDEZ=YO Simental, Niharika RICHARDSE=YO Gomez, Sarah &a-1R&a+25V*p+0X*n6550D*c202B*c15G*c2P*p-0X&a-25V&a+1R Name: Agustín Grande : 1960 M56 MedRec: [id number] AcctNum: [id number] Prepared: FriDec 04, 2016 00:55 by Interface Page 12 of 12 pMD MTDD
== END 2016-12-03 08:45 | disposition home or self-care (01) ==
LOC: NAV ERS 03:44
DX: M54.5 Low back pain (principal); R10.9 Unspecified abdominal pain; E78.5 Hyperlipidemia, unspecified; E11.9 Type 2 diabetes mellitus without complications; I10 Essential (primary) hypertension; Z72.0 Tobacco use
CPT/HCPCS: 74177; 80053; 81003; 85025; 96361; 96374; 96375; J1885; J2270; J2405; J7050

== ENCOUNTER 2017-07-21 10:46 | Emergency (ER) | payer BC, SELFPAY ==
[2017-07-21] MEDS ORDERED: predniSONE 20 MG TAB ONE (11:06)
[2017-07-21] MEDS ORDERED: Ibuprofen 800 MG TAB ONE (11:06)
== END 2017-07-21 11:24 | disposition home or self-care (01) ==
LOC: NAV ERS 10:46
DX: B02.9 Zoster without complications (principal); E78.5 Hyperlipidemia, unspecified; E11.9 Type 2 diabetes mellitus without complications; N40.0 Benign prostatic hyperplasia without lower urinary tract symptoms; I10 Essential (primary) hypertension; G47.30 Sleep apnea, unspecified; F17.210 Nicotine dependence, cigarettes, uncomplicated; Z79.84 Long term (current) use of oral hypoglycemic drugs; Z79.82 Long term (current) use of aspirin; Z79.899 Other long term (current) drug therapy
CPT/HCPCS: 99282; J7506

== ENCOUNTER 2019-12-21 01:27 | Emergency (ER) | payer OTHER, SELFPAY ==
[2019-12-21] MEDS ORDERED: Sodium Chloride 0.9% 1,000 ML ONE ×2 (01:54→02:27)
[2019-12-21] MEDS ORDERED: Ketorolac Tromethamine 30 MG/ML VIAL ONE (02:41)
[2019-12-21] MEDS ORDERED: Insulin Regular 300 UNITS/3 ML VIAL ONE (02:42)
[2019-12-21] MEDS ORDERED: Sodium Chloride 0.9% 500 ML ONE (02:42)
[2019-12-21] MEDS ORDERED: Adacel (T-DAP) 0.5 ML SYRINGE ONE (02:42)
[2019-12-21 03:29] LABS: #Basophils 0.1 thou/uL (0.0-0.2); #Eosinphils 0.1 thou/uL (0.0-0.7); #Lymphocytes 2.8 thou/uL (1.20-3.40); #Monocytes 0.3 thou/uL (0.11-0.59); #Neutrophils 2.2 thou/uL (1.40-6.50); %Basophils 1.4 % (0.0-1.0); %Lymphocytes 51.1 % (21.0-51.0); %Monocytes 4.8 % (0.0-10.0); %Neutrophils 40.6 % (42.0-75.0); ALT (SGPT) 17 U/L (8-55); AST (SGOT) 14 U/L (5-34); Albumin 3.8 g/dL (3.5-5.0); Alkaline Phosphatase 137 U/L (40-110); Anion Gap 17 mmol/L (10-20); BUN (Urea Nitrogen) 17 mg/dL (8.4-25.7); Bilirubin, Total 0.5 mg/dL (0.2-1.2); CK (CPK) 45 U/L (30-200); Calc. Creatinine Clearance 0 mL/min (70-130); Calcium 9.3 mg/dL (7.8-10.44); Carbon Dioxide 23 mmol/L (22-29); Chloride 102 mmol/L (98-107); Estimated GFR-MDRD 67; Globulin 2.5 g/dL (2.4-3.5); Glucose 453 mg/dL (70-105); Hemoglobin 14.4 g/dL (14.0-18.0); Mean Corpuscular HGB CONC 33.4 g/dL (32.0-36.0); Mean Corpuscular Hemoglobin 29.3 pg (27.0-31.0); Mean Corpuscular Volume 87.7 fL (78.0-98.0); Platelet Count 307 thou/uL (130-400); Potassium 3.6 mmol/L (3.5-5.1); Protein, Total 6.3 g/dL (6.0-8.3); RBC Distribution Width 11.2 % (11.5-14.5); Red Blood Cell (RBC) Count 4.91 mill/uL (4.70-6.10); Sodium 138 mmol/L (136-145); White Blood Cell (WBC) Count 5.4 thou/uL (4.8-10.8)
--- NOTE | 2019-12-21 07:29 | CT ---
PRELIMINARY REPORT/[facility]/EMERGENCY AFTER HOURS PROCEDURE EXAM: CT Head Without Intravenous Contrast. CLINICAL HISTORY: PATIENT PRESENTS WITH DAUGHTER AFTER PASSING OUT IN THE BATHROOM, FELL TO GROUND, AND HIT AN EMPTY AQ UARIUM THAT WAS ON THE GROUND, SHATTERING THE GLASS. COMPLAINS OF PAIN AT HIS BACK, AND THAT HE FEELS REALLY TIRED. TECHNIQUE: Axial computed tomography images of the head/brain without intravenous contrast. COMPARISON: None provided. FINDINGS: BRAIN: No acute intraparenchymal hemorrhage. No mass lesion. No CT evidence for acute territorial inf arct. No midline shift or extra-axial collection. Symmetric mineralization of the basal ganglia. VENTRICLES: No hydrocephalus. ORBITS: The orbits are unremarkable. SINUSES AND MASTOIDS: Opacified left frontal sinus. The remainder of the paranasal sinuses and mastoi d air cells are pneumatized and clear. SOFT TISSUES: No significant facial or scalp soft tissue swelling evident. No radiopaque foreign body is seen. BONES: No acute skull fracture. IMPRESSION: 1. No evidence of acute intracranial process. 2. Left frontal sinus opacification. Correlate for sinusitis. ELECTRONICALLY SIGNED BY: Arik Hess M.D. Dec 21, 2019 2:38:53 AM TESTING AND REGULATING TECHNICIAN FINAL REPORT CT BRAIN WITHOUT CONTRAST: I agree with the preliminary report given by Dr. Arik Hess of [facility]. Transcribed Date/Time: 12/21/2019 8:06 AM
--- NOTE | 2019-12-21 07:45 | RAD ---
XR Chest 1 View Portable HISTORY: Fall, syncope COMPARISON: 06/02/2015 FINDINGS: The heart size is normal. The lungs are well expanded without focal areas of consolidation, pneumothorax or pleural effusions. IMPRESSION: No radiographic evidence of acute cardiopulmonary process.
== END 2019-12-21 03:43 | disposition short-term general hospital (02) ==
LOC: NAV ERS 01:27
DX: R55 Syncope and collapse (principal); S21.211A Laceration without foreign body of right back wall of thorax without penetration into thoracic cavity, initial encounter; S41.011A Laceration without foreign body of right shoulder, initial encounter; E11.65 Type 2 diabetes mellitus with hyperglycemia; E78.5 Hyperlipidemia, unspecified; E78.00 Pure hypercholesterolemia, unspecified; N40.0 Benign prostatic hyperplasia without lower urinary tract symptoms; I10 Essential (primary) hypertension; G47.30 Sleep apnea, unspecified; F17.210 Nicotine dependence, cigarettes, uncomplicated; Z79.82 Long term (current) use of aspirin; Z79.84 Long term (current) use of oral hypoglycemic drugs; Z79.899 Other long term (current) drug therapy; W01.198A Fall on same level from slipping, tripping and stumbling with subsequent striking against other object, initial encounter
CPT/HCPCS: 12002; 36416; 70450; 71045; 80053; 82550; 83605; 84484; 85025; 90471; 90715; 93005; 96361; 96374; 96375; 36415-59; J1815; J1885; J7050

== ENCOUNTER 2020-12-23 12:51 | Emergency (ER) | payer BC ==
[~2020-12-23 12:51] MED LIST: Iopamidol 370 76% 100 ML VIAL ONE
[2020-12-23] MEDS ORDERED: diphenhydrAMINE 50 MG/ML VIAL ONE (13:13)
[2020-12-23] MEDS ORDERED: Ketorolac Tromethamine 30 MG/ML VIAL ONE (13:13)
[2020-12-23] MEDS ORDERED: Metoclopramide HCl 10 MG/2 ML VIAL ONE (13:13)
[2020-12-23] MEDS ORDERED: Sodium Chloride 0.9% 100 ML ONE (13:14)
[2020-12-23 13:18] LABS: #Basophils 0.1 thou/uL (0.0-0.2); #Eosinphils 0.1 thou/uL (0.0-0.7); #Lymphocytes 1.5 thou/uL (1.20-3.40); #Monocytes 0.3 thou/uL (0.11-0.59); #Neutrophils 4.5 thou/uL (1.40-6.50); %Basophils 1.1 % (0.0-1.0); %Eosinophils 2.1 % (0.0-10.0); %Lymphocytes 22.5 % (21.0-51.0); %Neutrophils 70.3 % (42.0-75.0); Hemoglobin 15.5 g/dL (14.0-18.0); Mean Corpuscular HGB CONC 34.1 g/dL (32.0-36.0); Mean Corpuscular Hemoglobin 29.9 pg (27.0-31.0); Mean Corpuscular Volume 87.5 fL (78.0-98.0); Platelet Count 284 thou/uL (130-400); RBC Distribution Width 11.4 % (11.5-14.5); Red Blood Cell (RBC) Count 5.19 mill/uL (4.70-6.10); White Blood Cell (WBC) Count 6.5 thou/uL (4.8-10.8)
[2020-12-23 13:31] LABS: ALT (SGPT) 19 U/L (8-55); AST (SGOT) 18 U/L (5-34); Albumin 4.3 g/dL (3.5-5.0); Alkaline Phosphatase 95 U/L (40-110); Anion Gap 15 mmol/L (10-20); BUN (Urea Nitrogen) 14 mg/dL (8.4-25.7); Bilirubin, Total 0.8 mg/dL (0.2-1.2); Calc. Creatinine Clearance 0 mL/min (70-130); Calcium 9.5 mg/dL (7.8-10.44); Carbon Dioxide 27 mmol/L (22-29); Chloride 100 mmol/L (98-107); Glucose 215 mg/dL (70-105); Potassium 4.1 mmol/L (3.5-5.1); Protein, Total 7.3 g/dL (6.0-8.3); Sodium 138 mmol/L (136-145)
--- NOTE | 2020-12-23 13:31 | CT ---
CT Brain WO Con: 12/23/2020 1:10 PM CLINICAL HISTORY: History of headache with left-sided facial and scalp numbness. IMAGING TECHNIQUE: Multiple CT images were obtained of the brain without IV contrast. COMPARISON: CT the brain without contrast dated December 21, 2019 FINDINGS: BRAIN: Evidence of acute infarct: None. Evidence of chronic ischemic change:None. Evidence of intracranial hemorrhage: None. Evidence of brain volume loss:None. Evidence of midline shift: Third ventricle and septum pellucidum are midline. Ventricles: Normal. No hydrocephalus. SKULL: Intact. VISUALIZED PARANASAL SINUSES: Air-fluid levels within the maxillary sinuses. Stable complete opacifi cation of the left frontal sinus. MASTOID AIR CELLS: Clear. EXTRACRANIAL SOFT TISSUES: Normal. IMPRESSION: No acute intracranial abnormality. Air-fluid levels within the maxillary sinuses suspicious for acute sinusitis. Stable complete opacification of the left frontal sinus.
[2020-12-23] MEDS ORDERED: Dexamethasone 20 MG/5 ML VIAL ONE (13:55)
[2020-12-23] MEDS ORDERED: Oxymetazoline HCl 0.05% (30 ML BOT) ONE (13:55)
[2020-12-23 14:23] LABS: Bilirubin Negative (Negative); Blood, Urine Negative (Negative); Clarity Clear (Clear); Glucose, Urine (Dipstick) >=1000 mg/dL (Negative); Ketone, Urine Negative (Negative); Leukocyte Negative (Negative); Nitrite Positive (Negative); Protein, Urine (Dipstick) 30 mg/dL (Neg-Trace); Urobilinogen 0.2 mg/dL (Less than 2)
[2020-12-23 14:27] LABS: Bacteria/HPF Rare-Few HPF (None Seen); RBC/HPF 0-3 HPF (0-3); Squamous Epithelial 0-3 HPF (0-3); WBC/HPF None Seen HPF (0-3)
--- NOTE | 2020-12-23 15:52 | CT ---
CT OF THE ABDOMEN AND PELVIS WITH IV CONTRAST INDICATION: Pelvic pain COMPARISON: CT the abdomen and pelvis with contrast dated December 03, 2016 FINDINGS: ABDOMEN: Lung bases: Clear Liver: No focal lesion. Gallbladder: Normal appearing. Pancreas: Normal. Adrenal glands: Normal. Spleen: Normal. Kidneys and ureters: There are stable bilateral nephrolithiasis and small bilateral renal cysts. One the largest in the right kidney is seen within the inferior pole measuring 5.7 mm. Largest in the left kidney measures 6 mm within the left mid kidney. No hydronephrosis is evident. No definite urete ral calculus is noted. Vasculature: There are mild vascular calcifications seen involving the visualized vasculature. Lymph nodes:No lymphadenopathy. Free fluid in abdomen:No free fluid is evident. PELVIS: Small and large bowel: Normal Appendix:Normal Bladder: Normal. Rectal and perirectal soft tissues:Normal. Reproductive structures: Normal. Free fluid in pelvis: No free fluid is evident. Lymphadenopathy pelvis: No lymphadenopathy is evident. Osseous structures: No acute osseous abnormality. No destructive osteolytic or osteoblastic lesion i s identified. There is scattered degenerative and osteoarthritic changes. Soft tissues:Normal. IMPRESSION: 1. No CT explanation for the patient's pelvic pain. 2. Stable bilateral renal cysts and bilateral nephrolithiasis.
== END 2020-12-23 16:15 | disposition home or self-care (01) ==
LOC: NAV ERS 12:51
DX: R51.9 Headache, unspecified (principal); I10 Essential (primary) hypertension; R10.9 Unspecified abdominal pain; R29.700 NIHSS score 0; E78.5 Hyperlipidemia, unspecified; E78.00 Pure hypercholesterolemia, unspecified; E11.9 Type 2 diabetes mellitus without complications; N40.0 Benign prostatic hyperplasia without lower urinary tract symptoms; G47.30 Sleep apnea, unspecified; F17.290 Nicotine dependence, other tobacco product, uncomplicated; Z87.19 Personal history of other diseases of the digestive system; Z79.82 Long term (current) use of aspirin; Z79.84 Long term (current) use of oral hypoglycemic drugs; Z79.899 Other long term (current) drug therapy
CPT/HCPCS: 70450; 74177; 80053; 81003; 81015; 85025; 93005; 96365; 96375; J1100; J1200; J1885; J2765; Q9967

== ENCOUNTER 2023-04-13 22:57 | Emergency (ER) | payer BC ==
[2023-04-13] MEDS ORDERED: Morphine 4 MG/ML VIAL ONE (23:27)
[2023-04-13] MEDS ORDERED: Ondansetron PF 4 MG/2 ML Vial ONE (23:28)
[2023-04-13] MEDS ORDERED: Pantoprazole 40 MG VIAL ONE (23:28)
[2023-04-13 23:36] LABS: #Basophils 0.1 thou/uL (0.0-0.2); #Eosinphils 0.2 thou/uL (0.0-0.7); #Lymphocytes 1.4 thou/uL (1.20-3.40); #Monocytes 0.5 thou/uL (0.11-0.59); #Neutrophils 5.2 thou/uL (1.40-6.50); %Basophils 1.1 % (0.0-1.0); %Eosinophils 2.1 % (0.0-10.0); %Lymphocytes 19.3 % (21.0-51.0); %Monocytes 6.4 % (0.0-10.0); Hemoglobin 13.8 g/dL (14.0-18.0); Mean Corpuscular Hemoglobin 29.6 pg (27.0-31.0); Mean Corpuscular Volume 87.2 fl (78.0-98.0); Mean Platelet Volume 6.5 fL (7.4-10.4); Platelet Count 245 10x3/uL (130-400); RBC Distribution Width 11.5 % (11.5-14.5); Red Blood Cell (RBC) Count 4.66 mill/uL (4.70-6.10); White Blood Cell (WBC) Count 7.3 10x3/uL (4.8-10.8)
[2023-04-13 23:48] LABS: ALT (SGPT) 15 U/L (8-55); AST (SGOT) 17 U/L (5-34); Albumin 4.1 g/dL (3.4-4.8); Alkaline Phosphatase 99 U/L (40-110); Anion Gap 15 mmol/L (10-20); BUN (Urea Nitrogen) 16 mg/dL (8.4-25.7); Bilirubin, Total 0.7 mg/dL (0.2-1.2); Calc. Creatinine Clearance 0 mL/min (70-130); Calcium 9.5 mg/dL (7.8-10.44); Carbon Dioxide 27 mmol/L (23-31); Chloride 102 mmol/L (98-107); Estimated GFR 66; Globulin 3.2 g/dL (2.4-3.5); Glucose 188 mg/dL (80-115); Potassium 3.8 mmol/L (3.5-5.1); Protein, Total 7.3 g/dL (5.8-8.1); Sodium 140 mmol/L (136-145)
[2023-04-14] MEDS ORDERED: Morphine 4 MG/ML VIAL ONE (00:01)
[2023-04-14 00:18] LABS: Lipase 23 U/L (8-78)
[2023-04-14] MEDS ORDERED: fentaNYL 50 mcg/mL 1 mL Vial ONE (02:31)
[2023-04-14] MEDS ORDERED: Sodium Chloride 0.9% 100 ML ONE (02:32)
[2023-04-14] MEDS ORDERED: Metoclopramide HCl 10 MG/2 ML VIAL ONE (02:32)
[2023-04-14 02:44] LABS: Bilirubin Negative (Negative); Blood, Urine Trace (Negative); Clarity Clear (Clear); Glucose, Urine (Dipstick) 500 mg/dL (Negative); Ketone, Urine Trace mg/dL (Negative); Leukocyte Negative (Negative); Nitrite Negative (Negative); Protein, Urine (Dipstick) 100 mg/dL (Neg-Trace); Specific Gravity, Urine 1.015 (1.005-1.030); Urobilinogen 0.2 mg/dL (Less than 2); pH, Urine 7.5 (5.0-9.0)
[2023-04-14 02:50] LABS: Bacteria/HPF None Seen HPF (None Seen); CAUTI Indications for Culture Pelvic or flank pain; RBC/HPF 0-3 HPF (0-3); Squamous Epithelial 0-3 HPF (0-3); WBC/HPF None Seen HPF (0-3)
[2023-04-14 02:51] LABS: Urine Culture Reflex No No
[2023-04-14] MEDS ORDERED: Milk Of Magnesia 30 ML UDCUP ONE (05:08)
[2023-04-14] MEDS ORDERED: Mag-Al Plus 1200 MG/1200 MG/120 MG/30 ML UDCUP ONE (05:09)
== END 2023-04-14 05:50 | disposition home or self-care (01) ==
LOC: NAV ERS 22:57
DX: R14.0 Abdominal distension (gaseous) (principal); E78.00 Pure hypercholesterolemia, unspecified; E11.9 Type 2 diabetes mellitus without complications; I10 Essential (primary) hypertension; F17.290 Nicotine dependence, other tobacco product, uncomplicated; Z79.899 Other long term (current) drug therapy; Z79.82 Long term (current) use of aspirin
CPT/HCPCS: 74177; 80053; 81001; 83690; 84484; 85025; 85379; 93005; 94760; 96374; 96375; C9113; J2270; J2405; J2765; J3010; Q9967